=== PATIENT | female | born 1940 | race Caucasian/White ===

== ENCOUNTER 2021-09-23 18:31 | Emergency (ER) | payer MEDICARE, OTHER ==
[~2021-09-23 18:31] MED LIST: ALTACE10 MG PO; AMLODIPINE BESYL5 MG PO; CARVEDILOL12.5 MG PO; COMBIVENT RESPIM4 GM INH; DULERA 200 MCG8.8 GM INH; DUONEB 2.5-0.5M1 AMP INH; ELIQUIS2.5 MG PO; LOPRESSOR50 MG PO; LORAZEPAM1 MG PO; MEDROL 4MG DOSEP4 MG PO; MUCINEX 600MG600 MG PO; NORCO 5-325 TA1 EACH PO; PREDNISONE 20MG20 MG PO; PROTONIX 40MG T40 MG PO; VIBRAMYCIN100 MG PO; ZPAK PO
[2021-09-23 19:59] LABS: BASOPHIL 0.2 % (0-2); EOSINOPHIL 0.2 % (0-7); HCT 36.5 % (37.0-47.0); HGB 12.1 g/dl (12.5-16.0); LYMPHOCYTE 13.9 % (15-48); MCH 32.5 pg (25.0-31.0); MCHC 33.2 g/dL (32.0-36.0); MCV 98.1 fL (78.0-100.0); MPV 9.7 fL (6.0-9.5); NEUTROPHIL 73.4 % (41-80); NRBC 0; PLT 157 K/uL (150-400); RBC 3.72 M/uL (4.20-5.40); RDW 12.4 % (11.5-14.0); WBC 5.8 K/uL (4.0-10.5)
[2021-09-23 20:19] LABS: BUN/CREAT RATIO (CALC) 18.5 RATIO; CREATININE 1.62 mg/dL (0.51-0.95); POTASSIUM 4.8 mmol/L (3.5-5.1)
[2021-09-23 21:49] LABS: BILIRUBIN NEGATIVE (NEGATIVE); BLOOD 2+ Ery/uL (NEGATIVE); CLARITY CLEAR (CLEAR); COLOR YELLOW (YELLOW); GLUCOSE (U) NORMAL (NORMAL); LEUKOCYTES NEGATIVE Leu/uL (NEGATIVE); NITRITE NEGATIVE (NEGATIVE); PROTEIN NEGATIVE (NEGATIVE); UROBILINOGEN 0.2 mg/dL (0.2-1.0)
[2021-09-23 21:56] LABS: BACTERIA TRACE
== END 2021-09-23 22:13 | disposition home or self-care (01) ==
LOC: FER 18:31
PROVIDERS: Nurse Practitioner Family
DX: U07.1 COVID-19 (principal); J44.9 Chronic obstructive pulmonary disease, unspecified; I12.9 Hypertensive chronic kidney disease with stage 1 through stage 4 chronic kidney disease, or unspecified chronic kidney disease; N18.9 Chronic kidney disease, unspecified; I48.91 Unspecified atrial fibrillation; Z87.891 Personal history of nicotine dependence; Z23 Encounter for immunization
CPT/HCPCS: 36415; 71045; 80048; 81001; 84484; 85025; 93005; J7030; M0245; Q0245

== ENCOUNTER 2021-10-26 12:07 | Emergency (ER) | payer MEDICARE, OTHER ==
[~2021-10-26 12:07] MED LIST changes: +CEPHALEXIN500 MG PO
== END 2021-10-26 20:16 | disposition home or self-care (01) ==
LOC: FER 12:07
DX: L29.9 Pruritus, unspecified (principal); I10 Essential (primary) hypertension; J44.9 Chronic obstructive pulmonary disease, unspecified
CPT/HCPCS: 99282

== ENCOUNTER 2022-07-20 19:32 | Emergency (ER) | payer MEDICARE, OTHER ==
[2022-07-20] MEDS ORDERED: ONDANSETRON ODT4 MG PO (22:14)
[2022-07-20] MEDS ORDERED: DOCUSATE SODIU1 EAC1 PO (22:14)
[2022-07-20] MEDS ORDERED: NORCO 5-325 TA1 EACH PO (22:14)
== END 2022-07-20 22:54 | disposition home or self-care (01) ==
LOC: FER 19:32
DX: S52.572A Other intraarticular fracture of lower end of left radius, initial encounter for closed fracture (principal); S09.90XA Unspecified injury of head, initial encounter; S00.83XA Contusion of other part of head, initial encounter; I10 Essential (primary) hypertension; Z79.899 Other long term (current) drug therapy; Z28.310 Unvaccinated for COVID-19; Z79.82 Long term (current) use of aspirin; W01.0XXA Fall on same level from slipping, tripping and stumbling without subsequent striking against object, initial encounter; Y92.009 Unspecified place in unspecified non-institutional (private) residence as the place of occurrence of the external cause
CPT/HCPCS: 70450; 73110; 96372; J1885